=== PATIENT | male | born 2000 | race African-American/Black ===

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

== ENCOUNTER 2022-03-24 08:42 | Outpatient (CLI) | payer BC | END 2022-03-24 23:59 | disposition home or self-care (01) | LOC: RAD 08:42 | PROVIDERS: ATTEND Family Medicine | DX: S53.32XA Traumatic rupture of left ulnar collateral ligament, initial encounter (principal); S66.812A Strain of other specified muscles, fascia and tendons at wrist and hand level, left hand, initial encounter; M65.88 Other synovitis and tenosynovitis, other site; X58.XXXA Exposure to other specified factors, initial encounter; Y93.89 Activity, other specified; Y92.89 Other specified places as the place of occurrence of the external cause; Y99.8 Other external cause status | CPT/HCPCS: 73221 ==

== ENCOUNTER 2022-06-21 11:44 | Emergency (ER) | payer BC ==
[~2022-06-21] VITALS: Ht 185.4 cm; Wt 70.0 kg
[2022-06-21 12:09] VITALS: BP 142/93
[2022-06-21] MEDS ORDERED: HYDROcodone/acetaminophen 5mg/325mg tablet PO ONE (12:35)
[2022-06-21] MEDS ORDERED: AMOX-117 PO (13:41)
[2022-06-21] MEDS ORDERED: HYDR-3965 PO (13:41)
[2022-06-21] MEDS ORDERED: amox tr/potassium clavulanate 875/125mg TAB PO ONE (13:45)
== END 2022-06-21 13:56 | disposition home or self-care (01) ==
LOC: ER 11:44
DX: S02.5XXA Fracture of tooth (traumatic), initial encounter for closed fracture (principal); K04.7 Periapical abscess without sinus; F31.9 Bipolar disorder, unspecified; Z88.5 Allergy status to narcotic agent; Z88.8 Allergy status to other drugs, medicaments and biological substances; Z79.899 Other long term (current) drug therapy; Z98.890 Other specified postprocedural states; X58.XXXA Exposure to other specified factors, initial encounter; Y93.89 Activity, other specified; Y92.89 Other specified places as the place of occurrence of the external cause; Y99.8 Other external cause status
CPT/HCPCS: 99283

== ENCOUNTER 2023-06-22 04:39 | Emergency (ER) | payer BC, MEDICAID ==
[~2023-06-22] VITALS: Ht 182.9 cm; Wt 65.6 kg
[2023-06-22 04:42] VITALS: BP 124/79; PULSE 77; RESP 18; TEMP 98.4; O2SAT 97
[2023-06-22] MEDS ORDERED: diazepam 5mg tablet PO ONE (05:00)
[2023-06-22] MEDS ORDERED: DIAZ5TAB PO (05:02)
== END 2023-06-22 05:14 | disposition home or self-care (01) ==
LOC: ER 04:40
DX: M43.6 Torticollis (principal); F31.9 Bipolar disorder, unspecified; Z88.6 Allergy status to analgesic agent; Z79.899 Other long term (current) drug therapy
CPT/HCPCS: 99283

== ENCOUNTER 2024-01-08 12:04 | Emergency (ER) | payer MEDICAID ==
[~2024-01-08] VITALS: Ht 185.4 cm; Wt 66.0 kg
[~2024-01-08 12:04] MED LIST changes: +DIAZ5TAB PO
[2024-01-08 12:25] VITALS: TEMP 99.1
[2024-01-08 12:49] VITALS: BP 132/75; PULSE 70; RESP 18; O2SAT 98
[2024-01-08] MEDS ORDERED: IBUP-1986 PO (13:13)
[2024-01-08] MEDS: ibuprofen tablet 400 MG TABLET PO ONE (13:15)
== END 2024-01-08 13:54 | disposition home or self-care (01) ==
LOC: ER 12:05
DX: M25.512 Pain in left shoulder (principal); F32.A Depression, unspecified; Z79.1 Long term (current) use of non-steroidal anti-inflammatories (NSAID); Z88.8 Allergy status to other drugs, medicaments and biological substances; Z72.89 Other problems related to lifestyle
CPT/HCPCS: 73030; 99283

== ENCOUNTER 2025-09-10 08:37 | Emergency (ER) | payer BC, MEDICAID ==
[~2025-09-10] VITALS: Ht 177.8 cm; Wt 65.9 kg
[~2025-09-10 08:37] MED LIST changes: +IBUP-1986 PO
--- NOTE | 2025-09-10 08:46 | Physician Documentation ---
History of Present Illness ~ Chief Complaint: Cough Stated Complaint: COLD/COUGH Time Seen by MD: 08:44 Primary Medical Doctor: [facility] HPI 25-year-old male presents to the ED with a complaint of shortness of breath which has persisted over the last three weeks. States he has been tested in the outpatient setting for RSV COVID and flu all coming back negative. States he feels like he can not catch a deep breath. Reports increased shortness of breath with any activity levels Day of Onset: Sep 10, 2025 Medication Reconciliation Allergies: Coded Allergies: amphetamine (Verified Allergy, Unknown, 09/10/25) dextroamphetamine (Verified Allergy, Unknown, 09/10/25) oxcarbazepine (Verified Allergy, Unknown, 09/10/25) Scheduled Clonidine Hcl* (Catapres*), 0.1 MG PO HS, (Reported) Divalproex Sodium (Depakote), 375 MG PO BID, (Reported) Ibuprofen (Ibuprofen), 1 TAB PO Q8H Prednisone (Prednisone), 1 TAB PO BID Scheduled PRN Diazepam (Valium), 1 TAB PO TID PRN PRN for pain Haloperidol (Haloperidol), 1 TAB PO Q6H PRN PRN for for anxiety/agitation, (Reported) Haloperidol Lactate (Haldol), 2 MG Q6H PRN PRN for for anxiety/agitation, (Reported) Lorazepam (Ativan), 1 TAB PO Q6H PRN PRN for for anxiety/agitation, (Reported) Lorazepam (Ativan), 1 MG IM Q6H PRN for for anxiety/agitation, (Reported) Past Medical History Past Medical History: Hernia, Bipolar, Depression Past Surgical History: other Other Past Surgical History: hernia repair (May 2013) Alcohol Use: None Drug Use: other Lives with: Family Lives In: Home Occupation: student Physical Exam Vital Signs: Temperature: 98.9, Source: Temporal, Heart Rate: 92, Respiratory Rate: 24, BP: 122/80, Pulse Oximetry: 100, Weight: 65.910 Oxygen Flow Rate: 0 Physical Exam General: Alert, mild distress. HEENT: PERRL, EOMI, no injection, moist mucous membranes. Neck: Full range of motion. Respiratory: Coarse lung sounds wheezing bilaterally Chest: No accessory muscle use. Cardiovascular: Regular rate and rhythm, no murmurs. Gastrointestinal: Soft, nontender, nondistended. Bowels sounds present. Extremities: Normal range of motion, no deformity. Neurologic: Oriented x4. Psychiatric: Normal mood and affect. Skin: Normal color, warm and dry. No edema, no ecchymosis. Progress Results/Orders Results/Orders Vital Signs 09/10/25 09/10/25 09/10/25 09/10/25 08:42 09:00 09:00 09:02 Temp 98.9 98.1 Pulse 92 73 73 Resp 24 22 16 20 B/P (MAP) 122/80 130/79 (96) Pulse Ox 100 98 O2 Delivery Room Air* O2 Flow Rate 0 0 FiO2 21 09/10/25 09/10/25 09:06 09:50 Pulse 83 68 Resp 14 16 B/P (MAP) 130/79 Pulse Ox 98 98 O2 Delivery Room Air* O2 Flow Rate 0 FiO2 21 Medical Decision Making Additional information obtaine: old records Findings 25-year-old male presented with what I suspected was a asthma exacerbation secondary to bronchitis. I gave him an emergent SVN treatment and an IM dose of Solu-Medrol. After treatment patient reported improved symptoms in his lungs sounded as though they were changing a gas more effectively. At this time going to discharge him for outpatient therapy and advised him to get an increased dosage of his maintenance inhaler Heart Score: 1 Differential Dx:Considerations: Include: anxiety, asthma, bronchitis, cardi ogenic shock, CHF, COPD, dysrhythmia, hypertension, accelerated, hypertension, essential, hypertension, malignant, hyperventilation, hyponatremia, myocardial infarction, panic attack, pneumonia, pneumonitis, pneumothorax, PSVT, pulmonary embolism, respiratory distress, respiratory failure, sinusitis, upper resp. infection, other Departure Disposition: 01 HOME / SELF CARE / HOMELESS Impression: Primary Impression: Acute bronchitis Additional Impressions: Cough Asthma Discharge Instructions: Asthma Action Plan, Adult, Upper Respiratory Infection, Adult Additional Instructions: Based on the medications that have been previously see prescribed and your suspected asthma exacerbation. Recommending that you request from your primary care to increase her dosage of your daily maintenance inhaler. If you have to use albuterol/your rescue inhaler repeatedly we will lose its effectiveness. Take medication as prescribed and follow up for any worsening symptoms Referrals: NO PRIMARY CARE PROVIDER (PCP) Prescriptions Prednisone (Prednisone) 10 Mg Tablet 1 TAB PO BID for 5 Days, #10 TAB Prov: MINH MG NP 09/10/25 Education Educated: Patient Educated regarding: diagnosis Signature Scribe Signature: f Attestation: Scribed for Minh Mg Spring Coverer by Minh Hull NP . 09/10/25 09:33 MINH MG NP Sep 10, 2025 08:46 RAY ALCALA MD Sep 10, 2025 17:43
[2025-09-10] MEDS: ipratropium/albuterol 3ml nebule NEB ONE (08:58)
[2025-09-10 09:00] VITALS: PULSE 73; RESP 16; TEMP 98.1
[2025-09-10 09:06] VITALS: PULSE 83; RESP 14; O2SAT 98
[2025-09-10] MEDS ORDERED: PRED10TA23 PO (09:32)
[2025-09-10 09:50] VITALS: BP 130/79; PULSE 68; RESP 16; O2SAT 98
== END 2025-09-10 09:58 | disposition home or self-care (01) ==
LOC: ER 08:37
DX: J20.9 Acute bronchitis, unspecified (principal); F31.9 Bipolar disorder, unspecified; J45.909 Unspecified asthma, uncomplicated; Z98.890 Other specified postprocedural states; Z88.8 Allergy status to other drugs, medicaments and biological substances; Z79.899 Other long term (current) drug therapy
CPT/HCPCS: 94640; 96374; 99283; J2919; 94760